=== PATIENT | female | born 1990 | race Caucasian/White ===

== ENCOUNTER 2018-04-11 09:00 | Inpatient (IN) | payer BC ==
[2018-04-04 14:42] LABS: BASOPHILS 0.4 % (0-2); EOSINOPHILS 2.4 % (0-7); HEMATOCRIT 37.4 % (36.0-48.0); HEMOGLOBIN 13.4 g/dL (12-16); IMMATURE GRANULOCYTES 0.4 % (0-5); LYMPHOCYTES 31.5 % (15-50); MCH 31.5 pg (26.0-34.0); MCHC 35.8 g/dL (31.0-37.0); MEAN PLATELET VOLUME 9.9 fL (7.4-10.4); MONOCYTES 5.8 % (2-11); NEUTROPHILS 59.5 % (40-80); RBC 4.25 10x6/uL (4.00-5.40); RDW 12.4 % (11.5-14.5); WBC 8.4 10x3/uL (4.8-10.8)
[2018-04-04 14:48] LABS: PLATELET COUNT 297 10x3/uL (130-400)
[2018-04-04 15:02] LABS: CALC OSMOLALITY 274 mosm/kg (275-300); CALCIUM 8.9 mg/dL (8.5-10.1); CHLORIDE - SERUM 104 mmol/L (98-107); CREATININE - SERUM 0.8 mg/dL (0.6-1.3); GLUCOSE 96 mg/dL (74-106); POTASSIUM - SERUM 3.9 mmol/L (3.5-5.1); SODIUM 138 mmol/L (136-145); UREA NITROGEN 10 mg/dL (7-18); eGFR NON AFRICAN AMERICAN 89 mL/min (90-120)
[2018-04-04 15:06] LABS: CARBON DIOXIDE 28.1 mmol/L (21.0-32.0)
[~2018-04-11] VITALS: Ht 160 cm; Wt 84.1 kg
--- NOTE | ~2018-04-11 | OP ---
PATIENT NAME: ZHANG BERRY MEDICAL RECORD: [id number] :88 LOCATION:[id number] ADMISSION DATE:04/11/18 SURGEON: GUS CLEMONS MD DATE OF OPERATION: 04/11/2018 PREOPERATIVE DIAGNOSES: 1. Pelvic pain. 2. Pelvic mass. POSTOPERATIVE DIAGNOSES: 1. Pelvic pain. 2. Pelvic mass. 3. Lysis of adhesions. 4. Suspect endometrioma. SURGEON: Gus Clemons MD VALIDATION INTERN: Elijah Carter. ANESTHESIOLOGIST: Dr. Silva. ANESTHETIC: General. FINDINGS: Uterus is slightly enlarged. The left ovary is approximately 5 to 6 cm cystic mass, but is densely adhesed to the left sidewall. The right tube and ovaries unremarkable. No visual evidence of endometriosis; however, during dissection of the cyst rupture with findings of "chocolate" contents. PROCEDURES: 1. Exploratory laparotomy. 2. Subtotal hysterectomy. 3. Bilateral salpingectomy. 4. Left oophorectomy and removal of mass. SPECIMENS REMOVED: Uterus without cervix, bilateral tubes and left ovary with mass. SPECIMEN DISPOSITION: Pathology. ESTIMATED BLOOD LOSS: 150 cc. Urine is 50 cc of concentrated urine. FLUIDS: 1700 cc of lactated Ringer's. COMPLICATIONS: None. DRAIN: Issa to gravity. INDICATIONS: The patient is a 28-year-old female with a history of pelvic pain and dyspareunia. The patient also has dysmenorrhea. The patient on workup was found to have a 5-cm persistent mass. The patient desires definitive treatment. The patient has been counseled and understands the limitations and risk of this procedure. OPERATIVE REPORT [id number] ZHANG BERRY DESCRIPTION OF PROCEDURE: After informed consent was assured, the patient was taken to the operating room, anesthetic was obtained. The patient is prepped and draped after being placed supine on the table and anesthetic being performed. Incision is made open in the lower abdomen, carried down to the underlying layer of the fascia, which was opened in the midline and extended laterally. The rectus bellies were dissected free superiorly and inferiorly and then in the midline. The peritoneum is opened and the bowel swept free of the pelvis and packed. The right ovary and tube was noted to be mobile and unremarkable. Inspection of the left side reveals adhesed ovary and mass. The left ovary to be attended to at the close of this procedure is not included in the initial dissection from the left. The Nabeel clamps were placed across the cornual region of the uterus. The right round ligament was elevated transfixed with a stitch and opened. The anterior leaf of the broad ligament was opened to the midline. The posterior leaf is brought into view and an opening created and a Nabeel-Mackey clamp passed underneath the right tube and through this opening. A second clamp was placed through this opening on the proximal side and the right tube is now excised. A tie and a pass and a anig-wpk-aye stitch is placed at the right ovary. Adequate hemostasis is achieved. Dissection now continues down to the level of the internal os exposing the right uterine bundle. This vascular bundle was doubly clamped at the level of the internal os mobilized with scissors and a doubly stitch for hemostasis. Attention was now directed to the contralateral side. Again, the round ligament was elevated transfixed with a stitch and opened. The anterior leaf of the broad ligament was opened and the bladder flap fully developed. An opening was made in the posterior aspect of the broad ligament and a clamp passed through this opening. A second clamp was passed proximal in this and the uterine ovarian ligament is now cut free. Kxac-kty-iri stitches placed on the lateral aspect of this to obtain hemostasis. This dissection now continues down the left side exposing the left vascular bundle. This vascular bundle was at the level of the internal os was doubly clamped, cut and tied. A single Nabeel clamp was placed just medial to the stitch incorporating the vascular bundle. A 1/3 of this distance of this clamp was utilized. This pedicle was freed with a scalpel and a Nabeel stitch applied here for hemostasis. This was repeated on the contralateral side. The dissection of the uterus from the cervix now begins with Bovie cautery and this completed with Jolie scissors. The endocervical canal was cauterized and interrupted stitches applied across the cervical stump for hemostasis. The pelvis was irrigated and irrigant removed. Attention was now directed to the left side. Using Metzenbaum scissors, the adhesions to the left ovary are now taken down from the omentum. The adhesions continued posteriorly and they were taken down both bluntly and sharply. Once the ovary has been immobilized on the infundibulopelvic ligament, the path of the ureters visualized. The 2 clamps are now placed at the distal segment of the infundibulopelvic ligament as it attaches to the ovary. The ovary is now removed with scissors and a free tie and puzc-hun-nwh stitch applied for hemostasis at the left infundibulopelvic ligament. Adequate hemostasis has been achieved and the pelvis again was irrigated. All irrigant was removed. The sponges were removed and sponge, lap and instrument count was correct times 1 at this time. The fascia was now closed with running fashion with looped PDS. A second count is correct. Subcutaneous tissue was irrigated. Bleeding vessels cauterized and the subcutaneous tissue and skin reapproximated with the stitch. Dermabond is applied to the incision and the patient was awakened and went to the recovery room in stable condition. TRANSINT:[id number] Voice Confirmation ID: [id number] DOCUMENT ID: [id number] OPERATIVE REPORT [id number] ZHANG BERRY,GUS Richardson MD at 0800 CC: [id number] DICTATION DATE: 04/15/18 1255 HEALTH AND SAFETY REPRESENTATIVE: 04/16/18 0054 DIS IN 04/13/18 [facility] [address] [place] [address]
[2018-04-11 08:16] VITALS: BP 110/67; BMI 36.3
[2018-04-11 08:35] LABS: HCG URINE NEGATIVE (NEGATIVE)
[2018-04-11 13:38] VITALS: BP 123/58
[2018-04-11 19:32] VITALS: BP 129/73; Ht 160 cm; Wt 84.1 kg
[2018-04-11 20:20] VITALS: BP 100/51
[2018-04-12 00:27] VITALS: BP 103/53
[2018-04-12 04:49] VITALS: BP 96/52
[2018-04-12 06:19] LABS: HEMOGLOBIN 11.7 g/dL (12-16); MCH 31.3 pg (26.0-34.0); MCHC 35.5 g/dL (31.0-37.0); MCV 88.2 fL (80.0-100.0); MEAN PLATELET VOLUME 9.9 fL (7.4-10.4); RBC 3.74 10x6/uL (4.00-5.40); RDW 12.2 % (11.5-14.5); WBC 15.9 10x3/uL (4.8-10.8)
[2018-04-12 08:15] VITALS: BP 114/63
[2018-04-12 19:12] VITALS: BP 115/61
[2018-04-12 22:25] VITALS: BP 108/59
[2018-04-13] MEDS ORDERED: REGLAN10 MG PO (11:07)
[2018-04-13] MEDS ORDERED: PERCOCET 7.5/321 TAB PO (11:08)
[2018-04-13] MEDS ORDERED: IBUPROFEN800 MG PO (11:11)
== END 2018-04-13 12:50 | disposition home or self-care (01) | DRG 743 ==
LOC: D.SDCHOLD 09:00 → D.LD 09:34
PROVIDERS: Obstetrics & Gynecology
PROC: 0UT10ZZ Resection of Left Ovary, Open Approach (ICD-10-PCS; 2018-04-11)
PROC: 0UT90ZZ Resection of Uterus, Open Approach (ICD-10-PCS; principal; 2018-04-11 09:00)
PROC: 0UB60ZZ Excision of Left Fallopian Tube, Open Approach (ICD-10-PCS; 2018-04-11 09:00)
DX: N80.3 Endometriosis of pelvic peritoneum (principal); R19.00 Intra-abdominal and pelvic swelling, mass and lump, unspecified site; N93.9 Abnormal uterine and vaginal bleeding, unspecified